=== PATIENT | female | born 1955 | race Caucasian/White ===

== ENCOUNTER 2018-05-22 07:30 | Inpatient (IN) | payer BC ==
[2018-05-18 12:06] LABS: BASOPHILS % (AUTO) 0.3 % (0-1); EOSINOPHILS # (AUTO) 0.2 X10'3 (0-0.9); EOSINOPHILS % (AUTO) 1.9 % (0-6); LYMPHOCYTES # (AUTO) 1.3 X10'3 (1.1-4.8); LYMPHOCYTES % (AUTO) 13.9 % (21-51); MEAN CORPUSCULAR HGB CONC 33.6 % (33.0-36.5); MEAN CORPUSCULAR VOLUME 92.2 FL (78-98); MONOCYTES # (AUTO) 0.5 X10'3 (0-0.9); MONOCYTES % (AUTO) 5.1 % (2-12); NEUTROPHILS # (AUTO) 7.4 X10'3 (1.8-7.7); NEUTROPHILS % (AUTO) 78.8 % (42-75); PRE OP HEMATOCRIT 35.1 % (35.0-45.0); PRE OP HEMOGLOBIN 11.8 g/dL (12.0-16.0); PRE OP PLATELET COUNT 252 X10'3 (140-440); RED CELL DISTRIBUTION WIDTH 13.7 % (11.5-14.5)
[2018-05-18 12:15] LABS: HEMOGLOBIN A1C 7.2 % (4.5-6.2)
[2018-05-18 12:26] LABS: ALBUMIN 3.4 G/DL (3.4-5.0); ALBUMIN/GLOBULIN RATIO 0.8 (1.1-1.5); ALKALINE PHOSPHATASE 83 IU/L (46-116); BLOOD UREA NITROGEN 22 MG/DL (7-18); BUN/CREATININE RATIO 19.1 (6.6-38.0); CALCIUM 10.5 MG/DL (8.5-10.1); CHLORIDE 101 MMOL/L (99-107); CREATININE 1.15 MG/DL (0.40-0.90); PRE OP ALT 23 U/L (30-65); PRE OP ANION GAP 8 (8-16); PRE OP AST 12 U/L (10-37); PRE OP BILIRUB, TOTAL 0.3 MG/DL (0.0-1.0); PRE OP GLUCOSE 183 MG/DL (70-104); PRE OP POTASSIUM 4.4 MMOL/L (3.4-5.1); PRE OP SODIUM 140 MMOL/L (135-145); TOTAL CARBON DIOXIDE 31.3 MMOL/L (24-32); TOTAL PROTEIN 7.8 G/DL (6.4-8.2); eGFR 48 ML/MIN
[~2018-05-22] VITALS: Ht 162.6 cm; Wt 87.2 kg
[~2018-05-22 07:30] MED LIST: CELE200C PO; TRIA1CAP6 PO
[2018-05-25] VITALS (19 sets, daily range): BP systolic 101–140; BP diastolic 53–81
[2018-05-25] MEDS ORDERED: ringers solution, lacted 1,000 ML IV SCH ×2 (05:00→10:57)
[2018-05-25] MEDS ORDERED: VANCOMYCIN INJ 1000 MG in NORMAL SALINE 250ml IV.SOLN IV ONE (05:30)
[2018-05-25] MEDS ORDERED: cefazolin/dext.iso 2gm/100 ML IV ONE (05:30)
[2018-05-25] MEDS ORDERED: famotidine 20mg tablet PO ONE (05:30)
[2018-05-25] MEDS ORDERED: tranexamic acid inj. 860 MG in normal saline 100ml IV soln 91.4 ML IV ONE ×2 (05:30→10:25)
[2018-05-25] MEDS ORDERED: ROPIVAcaine 0.5% (5mg/ml) 30ml vial ONE ×2 (07:13→09:15)
[2018-05-25] MEDS ORDERED: vancomycin 1,000mg inj ONE (08:19)
[2018-05-25] MEDS ORDERED: ketorolac trometh. 30mg/ml inj. ONE (09:14)
[2018-05-25] MEDS ORDERED: sevoflurane 250ml liquid IH ONE (10:05)
[2018-05-25] MEDS ORDERED: dexamethasone sod phosphate 10mg/ml inj ONE (10:05)
[2018-05-25] MEDS ORDERED: fentaNYL/PF 50MCG/1 ML 2ML syringe ONE (10:11)
[2018-05-25] MEDS ORDERED: midazolam 2 mg/2 ml injection ONE (10:11)
[2018-05-25] MEDS ORDERED: ePHEDrine 50MG/ML INJ. ONE (10:18)
[2018-05-25] MEDS ORDERED: LIDOcaine 2% (20mg/ml) 5ml vial ONE (10:36)
[2018-05-25] MEDS ORDERED: propofol inj 20 ML IV ONE (10:36)
[2018-05-25] MEDS ORDERED: ondansetron/PF 4mg/2ml inj ONE (10:36)
[2018-05-25] MEDS ORDERED: hydrALAZINE 20mg/ml inj. IV PRN (11:00)
[2018-05-25] MEDS ORDERED: ondansetron/PF 4mg/2ml inj IV PRN ×2 (11:00→15:05)
[2018-05-25] MEDS ORDERED: fentaNYL/PF 50MCG/1 ML 2ML syringe IV PRN ×2 (11:00)
[2018-05-25] MEDS ORDERED: morphine 4 MG/ML inj SYRINge IV PRN ×2 (11:00)
[2018-05-25] MEDS ORDERED: enalaprilat dihydrate 2.5mg/2ml vial IV PRN (11:00)
[2018-05-25] MEDS ORDERED: magnesium hydroxide 30ml (MOM) UD suspension PO PRN (15:05)
[2018-05-25] MEDS ORDERED: acetaminophen 325mg tablet PO PRN (15:05)
[2018-05-25] MEDS ORDERED: bisacodyl 10mg suppository rectal RC PRN (15:05)
[2018-05-25] MEDS ORDERED: oxyCODONE IR 5mg (immed. release) tablet PO PRN ×2 (15:05)
[2018-05-25] MEDS ORDERED: diphenhydrAMINE 25mg capsule PO PRN ×2 (15:05)
[2018-05-25] MEDS ORDERED: HYDROmorphone 1 mg/ml syringe IV PRN ×2 (15:05)
[2018-05-25] MEDS: ceFAZolin/D5W- 1GM premix 50 ML IV SCH (16:34)
[2018-05-25] MEDS: potassium cl 20mEq in 1/2 NS 1,000 ML IV SCH (16:35)
[2018-05-25] MEDS ORDERED: tranexamic acid inj. 870 MG in normal saline 100ml IV soln 100 ML IV ONE (18:00)
[2018-05-25] MEDS ORDERED: vancomycin/NS 1 GM ADD-VANTAGE 250 ML IV SCH (20:00)
[2018-05-25] MEDS: gabapentin 300mg capsule PO SCH (20:38)
[2018-05-25] MEDS: acetaminophen 325mg tablet PO SCH (20:38)
[2018-05-25] MEDS: ketorolac tromethamine 15mg/ml inj. IV SCH (20:38)
[2018-05-25] MEDS ORDERED: sennosides 8.6mg tablet PO SCH (21:00)
[2018-05-26] MEDS: ceFAZolin/D5W- 1GM premix 50 ML IV SCH (00:27)
[2018-05-26] MEDS: acetaminophen 325mg tablet PO SCH ×2 (01:39→08:02)
[2018-05-26] MEDS: ketorolac tromethamine 15mg/ml inj. IV SCH ×2 (01:43→08:01)
[2018-05-26 02:00] VITALS: BP 120/57
[2018-05-26] MEDS: potassium cl 20mEq in 1/2 NS 1,000 ML IV SCH ×2 (05:47→06:35)
[2018-05-26 06:05] LABS: BASOPHILS % (AUTO) 0.1 % (0-1); EOSINOPHILS % (AUTO) 0 % (0-6); HEMATOCRIT 29.1 % (35.0-45.0); HEMOGLOBIN 9.6 g/dl (12.0-16.0); LYMPHOCYTES # (AUTO) 0.8 X10'3 (1.1-4.8); LYMPHOCYTES % (AUTO) 11.2 % (21-51); MEAN CORPUSCULAR HEMOGLOBIN 30.4 PG (27.0-31.0); MEAN CORPUSCULAR HGB CONC 32.9 % (33.0-36.5); MEAN CORPUSCULAR VOLUME 92.3 FL (78-98); MEAN PLATELET VOLUME 7.9 FL (7.4-10.4); MONOCYTES # (AUTO) 0.4 X10'3 (0-0.9); MONOCYTES % (AUTO) 5.8 % (2-12); NEUTROPHILS # (AUTO) 6.2 X10'3 (1.8-7.7); NEUTROPHILS % (AUTO) 82.9 % (42-75); PLATELET COUNT 221 X10'3 (140-440); RED BLOOD COUNT 3.15 X10'6 (4.20-5.60); RED CELL DISTRIBUTION WIDTH 13.3 % (11.5-14.5); WHITE BLOOD COUNT 7.5 X10'3 (4.5-11.0)
[2018-05-26 06:08] LABS: ANION GAP 9 (8-16); CHLORIDE 103 MMOL/L (99-107); POTASSIUM 4.6 MMOL/L (3.5-5.1); SODIUM 138 MMOL/L (135-145); TOTAL CARBON DIOXIDE 26.1 MMOL/L (24-32)
[2018-05-26] MEDS ORDERED: triamterene/HCTZ 37.5/25mg tablet PO SCH (08:00)
[2018-05-26] MEDS: gabapentin 300mg capsule PO SCH (08:01)
[2018-05-26] MEDS ORDERED: aspirin 325mg tablet PO SCH (08:30)
[2018-05-26 08:50] VITALS: BP 122/62
[2018-05-26] MEDS ORDERED: celeCOXIB 100mg capsule PO SCH ×2 (20:00)
[2018-05-27] MEDS ORDERED: acetaminophen 325mg tablet PO PRN (15:05)
== END 2018-05-26 10:07 | disposition home or self-care (01) | DRG 483 ==
LOC: PAS IN 05-25 05:34 → EDSTATUS 05-25 09:15 → ORTHO 4S 05-25 13:30 → EDSTATUS 05-27 11:15
PROVIDERS: ADMIT Orthopaedic Surgery; ATTEND Orthopaedic Surgery
PROC: 0LS40ZZ Reposition Left Upper Arm Tendon, Open Approach (ICD-10-PCS; 2018-05-25)
PROC: 3E0T3BZ Introduction of Anesthetic Agent into Peripheral Nerves and Plexi, Percutaneous Approach (ICD-10-PCS; 2018-05-25)
PROC: 0RRK0JZ Replacement of Left Shoulder Joint with Synthetic Substitute, Open Approach (ICD-10-PCS; principal; 2018-05-25 09:45)
DX: M19.012 Primary osteoarthritis, left shoulder (principal); D62 Acute posthemorrhagic anemia; M19.011 Primary osteoarthritis, right shoulder; K21.9 Gastro-esophageal reflux disease without esophagitis; G89.29 Other chronic pain; M65.812 Other synovitis and tenosynovitis, left shoulder; E11.22 Type 2 diabetes mellitus with diabetic chronic kidney disease; I12.9 Hypertensive chronic kidney disease with stage 1 through stage 4 chronic kidney disease, or unspecified chronic kidney disease; N18.3 Chronic kidney disease, stage 3 (moderate); Z79.899 Other long term (current) drug therapy
CPT/HCPCS: 36415; 80051; 80053; 83036; 85025; 87070; 97110; 97116; 97161; A4565; A7000; C1713; C1776; G0378; J0690; J1100; J1885; J2001; J2250; J2405; J2704; J2795; J3010; J3370; J7030; J7040; J7120